=== PATIENT | female | born 1995 | race Caucasian/White ===

== ENCOUNTER 2021-01-22 17:19 | Emergency (ER) | payer OTHER ==
[~2021-01-22 17:19] MED LIST: COLACE 100MG C100 MG PO; EPIFOAM FOAM10 GM TOP; FEOSOL325 MG PO; PRENATAL TABLE1 EAC1 PO
[2021-01-22 18:17] LABS: HEMOGLOBIN 13.5 gm/dl (12.3-15.3); RED BLOOD COUNT 4.07 M/UL (4.00-5.10)
[2021-01-22 18:43] LABS: BUN/CREATININE RATIO 11 (0-10)
== END 2021-01-22 22:00 | disposition home or self-care (01) ==
LOC: ER1 17:19
PROVIDERS: Physician Assistant
DX: O99.891 Other specified diseases and conditions complicating pregnancy (principal); R07.9 Chest pain, unspecified; Z3A.21 21 weeks gestation of pregnancy; Z86.16 Personal history of COVID-19
CPT/HCPCS: 80053; 82550; 82553; 83874; 84484; 85025; 85379; 93005; 99285; Q9967

== ENCOUNTER 2021-06-02 16:20 | Inpatient (IN) | payer OTHER ==
[~2021-06-02] VITALS: Ht 154.9 cm; Wt 81.6 kg
[2021-06-02 17:02] LABS: HEMOGLOBIN 14.1 gm/dl (12.3-15.3); RED BLOOD COUNT 4.21 M/UL (4.00-5.10); WHITE BLOOD COUNT 13.7 K/UL (4.5-11.0)
[2021-06-03] MEDS ORDERED: DOCUSATE SODIU100 MG PO (15:34)
[2021-06-04 06:09] LABS: HEMOGLOBIN 13.5 gm/dl (12.3-15.3)
== END 2021-06-05 17:52 | disposition home or self-care (01) | DRG 807 ==
LOC: GENOP 16:20 → OB 16:37
PROVIDERS: Obstetrics & Gynecology; ADMIT Obstetrics & Gynecology
PROC: 4A1HXCZ Monitoring of Products of Conception, Cardiac Rate, External Approach (ICD-10-PCS; 2021-06-02)
PROC: 10E0XZZ Delivery of Products of Conception, External Approach (ICD-10-PCS; principal; 2021-06-03)
PROC: 10907ZC Drainage of Amniotic Fluid, Therapeutic from Products of Conception, Via Natural or Artificial Opening (ICD-10-PCS; 2021-06-03)
PROC: 3E033VJ Introduction of Other Hormone into Peripheral Vein, Percutaneous Approach (ICD-10-PCS; 2021-06-03)
PROC: 0HQ9XZZ Repair Perineum Skin, External Approach (ICD-10-PCS; 2021-06-03)
PROC: 3E0234Z Introduction of Serum, Toxoid and Vaccine into Muscle, Percutaneous Approach (ICD-10-PCS; 2021-06-03)
DX: O66.0 Obstructed labor due to shoulder dystocia (principal); Z37.0 Single live birth; O99.344 Other mental disorders complicating childbirth; Z20.822 Contact with and (suspected) exposure to COVID-19; Z3A.39 39 weeks gestation of pregnancy; F32.9 Major depressive disorder, single episode, unspecified; F41.9 Anxiety disorder, unspecified; O69.1XX0 Labor and delivery complicated by cord around neck, with compression, not applicable or unspecified; O70.0 First degree perineal laceration during delivery; Z23 Encounter for immunization
CPT/HCPCS: 36415; 81001; 82800; 82962; 85014; 85018; 85025; 85461; 86850; 86900; 86901; 90471; 90715; J2790; J7120; U0002